=== PATIENT | female | born 1985 | race Caucasian/White ===

== ENCOUNTER → 2019-01-06 11:54 | Emergency (ER) | payer OTHER ==
[~2019-01-06 11:54] MED LIST: Acetaminophen TAB* 325 MG PO ONE; D5NS 0.9% 1000 ML BAG* 1,000 ML IV SCH; Dexamethasone IV* 4 MG/ML 1 ML (4 MG) IV SLOW PU ONE; Ketorolac INJ* 30 MG/ML 1 ML VIAL IV PUSH ONE; Penicillin VK TAB* 250 MG PO ONE
[2019-01-06 12:42] LABS: Influenza A Molecular NEGATIVE (Negative); Influenza B Molecular NEGATIVE (Negative)
--- NOTE | 2019-01-06 13:43 | ED ---
Influenza-Like Illness - HPI Summary HPI Summary: Patient is a 33 -year-old female presenting to the ED with fevers, sweats, chills, sore throat. Symptoms have been present 5 days. She endorses diaphoresis on arrival. She states she feels her throat is closing. Denies any known allergies. Denies any sick contacts. She continues to eat and drink , however she endorses decreased by mouth intake. - History of Current Complaint Chief Complaint: EDFluSymptoms Time Seen by Provider: 01/06/19 12:58 Hx Obtained From: Patient Onset/Duration: Sudden Onset Severity: Mild Associated Signs & Symptoms: Fever, T Max - 102.9, F/C, Myalgia, Sore Throat - Allergy/Home Medications Allergies/Adverse Reactions: Allergies Allergy/AdvReac Type Severity Reaction Status Date / Time No Known Allergies Allergy Verified 01/06/19 12:16 PMH/Surg Hx/FS Hx/Imm Hx Previously Healthy: Yes Psychiatric History: Reports: Hx Depression - Surgical History Surgery Procedure, Year, and Place: Tubal ligation April 2015 - Immunization History Hx Pertussis Vaccination: No Immunizations Up to Date: Yes - Infectious Disease History: No Infectious Disease History: Denies: History Other Infectious Disease, Traveled Outside the [place] in Last 30 Days - Family History Known Family History: Positive: None - Social History Occupation: Employed Part-time Lives: With Family Alcohol Use: None Hx Substance Use: Yes Substance Use Type: Reports: None, Prescribed Hx Tobacco Use: Yes Smoking Status (MU): Current Every Day Smoker Type: Cigarettes Amount Used/How Often: 1/2 ppd Have You Smoked in the Last Year: Yes Review of Systems Positive: Fever, Chills, Fatigue, Skin Diaphoresis Positive: Sore Throat. Negative: Ear Ache Negative: Palpitations, Chest Pain Negative: Shortness Of Breath, Cough Genitourinary: Negative Positive: no symptoms reported, see HPI Negative: Rash, Bruising Neurological: Negative All Other Systems Reviewed And Are Negative: Yes Physical Exam Triage Information Reviewed: Yes Vital Signs On Initial Exam: Initial Vitals Temp Pulse Resp BP Pulse Ox 102.9 F 147 17 127/81 99 01/06/19 12:12 01/06/19 12:12 01/06/19 12:12 01/06/19 12:12 01/06/19 12:12 Vital Signs Reviewed: Yes Appearance: Positive: Well-Appearing, Well-Nourished Skin: Positive: Warm, Skin Color Reflects Adequate Perfusion ENT: Positive: Pharyngeal erythema, Tonsillar swelling, Tonsillar exudate, Hoarse voice, Uvula midline. Negative: Hearing grossly normal, Pharynx normal, Nasal congestion, Dental tenderness, Sinus tenderness Neck: Positive: Supple, No Lymphadenopathy Respiratory/Lung Sounds: Positive: Clear to Auscultation, Breath Sounds Present Cardiovascular: Positive: RRR, Pulses are Symmetrical in both Upper and Lower Extremities Musculoskeletal: Positive: Strength/ROM Intact Neurological: Positive: Sensory/Motor Intact, Alert, Oriented to Person Place, Time, Speech Normal Psychiatric: Positive: Affect/Mood Appropriate AVPU Assessment: Alert Diagnostics - Vital Signs Vital Signs Temp Pulse Resp BP Pulse Ox 01/06/19 12:12 102.9 F 147 17 127/81 99 - Laboratory Lab Results: Lab Results 01/06/19 01/06/19 Range/Units 12:28 12:30 Influenza A (Rapid) Negative (Negative) Influenza B (Rapid) Negative (Negative) Group A Strep Rapid Positive A (Negative) Lab Statement: Any lab studies that have been ordered have been reviewed, and results considered in the medical decision making process. Flu Symptom Course/Dx - Course Course Of Treatment: During Mar[place], the patient is evaluated for fevers, sweats, chills, sore throat. Strep positive. Flu negative. On arrival, she is noted to be a 102.9 and 147 heart rate. She is given fluids, D5 normal saline, Decadron and given Pen VK. She is feeling improved. She will be discharged with prednisone, penicillin and Toradol. Recheck vital signs prior to discharge , continues to be tachycardia at 117. Temperature 101. Patient however states she is comfortable going home and is able to eat and drink okay. She understands return precautions and will return if she has any worsening or changing symptoms, or if she is developing a fever not well controlled with Toradol and Tylenol. - Diagnoses Provider Diagnoses: Strep throat Discharge - Sign-Out/Discharge Documenting (check all that apply): Patient Departure Patient Received Moderate/Deep Sedation with Procedure: No - Discharge Plan Condition: Stable Disposition: HOME Prescriptions: Ketorolac TAB * [Toradol TAB *] 10 mg PO Q6H #16 tab Penicillin VK 500 MG TAB(NF) [Penicillin VK 500 mg Tab(NF)] 500 mg PO BID #19 tab MDD 2 predniSONE TAB* [Deltasone TAB*] 50 mg PO DAILY #5 tab MDD 1 Patient Education Materials: Strep Throat (ED) Referrals: No Primary Care Phys,NOPCP [Primary Care Provider] - Additional Instructions: Prednisone 1 tab daily use in the morning, start this tomorrow Penicillin 1 tab twice daily 10 days, your next dose is this evening. Toradol up to four times daily x 4 days for discomfort. Dx: Strep Throat You will need antibiotic medicine to treat your strep throat. Please take the antibiotic as directed. You should feel better within 2 to 3 days after you start antibiotics. You may return to work or school 24 hours after you start antibiotics. If you have any questions about your medications, please do no hesitate to call or talk with your pharmacist. How can I manage my symptoms? Use lozenges, ice, soft foods, or popsicles to soothe your throat. Drink juice, milk shakes, or soup if your throat is too sore to eat solid food. Drinking liquids can also help prevent dehydration. Gargle with salt water. Mix teaspoon salt in a 1 cup of warm water and gargle. This may help reduce swelling in your throat. Do not smoke. Nicotine and other chemicals in cigarettes and cigars can cause lung damage and make your symptoms worse. Ask your healthcare provider for information if you currently smoke and need help to quit. E-cigarettes or smokeless tobacco still contain nicotine. Talk to your healthcare provider before you use these products. How do I prevent the spread of strep throat? Wash your hands often. Use soap and water. Wash your hands after you use the bathroom, change a child's diapers, or sneeze. Wash your hands before you prepare or eat food. Do not share food or drinks. Replace your toothbrush after you have taken antibiotics for 24 hours. Toradol: This medication is used to relieve moderate to moderately severe pain. Do not drink alcohol while taking Toradol. Do not take any other non-steroidal medications (ex. Naproxen, Ibuprofen, Motrin) while taking Toradol. - Billing Disposition and Condition Condition: STABLE Disposition: Home
[2019-01-06 15:26] VITALS: BP 131/78
== END | disposition home or self-care (01) ==
LOC: ED 11:54
DX: J02.0 Streptococcal pharyngitis (principal); R50.9 Fever, unspecified; J02.9 Acute pharyngitis, unspecified; F17.210 Nicotine dependence, cigarettes, uncomplicated
CPT/HCPCS: 87651; 99282; A9270-GY; J1100; J1885

== ENCOUNTER → 2019-09-08 01:16 | Emergency (ER) | payer OTHER ==
[~2019-09-08 01:16] MED LIST changes: -Acetaminophen TAB* 325 MG PO ONE; -D5NS 0.9% 1000 ML BAG* 1,000 ML IV SCH; -Dexamethasone IV* 4 MG/ML 1 ML (4 MG) IV SLOW PU ONE; +Ibuprofen TAB* 400 MG ONE; -Ketorolac INJ* 30 MG/ML 1 ML VIAL IV PUSH ONE; +Penicillin G Benzathine 1.2MU* 1,200,000 UNITS/2 ML SYR IM ONE; -Penicillin VK TAB* 250 MG PO ONE
[2019-09-08 01:20] VITALS: BP 127/91
[2019-09-08 04:46] LABS: Rapid Strep Molecular POSITIVE (Negative)
--- NOTE | 2019-09-08 04:51 | ED ---
HPI Febrile Illness - HPI Summary HPI Summary: This patient is a 33 year old F presenting to [facility] accompanied by significant other with a chief complaint of sore throat since night of 09/05/19. Patient reports fatigue, fever, body aches, and chills. Patient denies cough, nasal discharge, nausea, vomiting. Pt has previous issues with severe sore throat, around the same time last year. Pt smokes. Pt has no PMHx of respiratory issues. Pt denies any other health issues. - History of Current Complaint Chief Complaint: EDThroatPain Time Seen by Provider: 09/08/19 01:28 Hx Obtained From: Patient Hx Last Menstrual Period: NOW Onset/Duration: Started Days Ago Timing: Constant Initial Severity: Moderate Current Severity: Severe Pain Intensity: 8 Pain Scale Used: 0-10 Numeric Aggravating Factors: Nothing Alleviating Factors: Nothing Associated Signs and Symptoms: Chills, Other: - fatigue, fever, and body aches - Allergy/Home Medications Allergies/Adverse Reactions: Allergies Allergy/AdvReac Type Severity Reaction Status Date / Time No Known Allergies Allergy Verified 09/08/19 01:20 PMH/Surg Hx/FS Hx/Imm Hx Sensory History: Denies: Hx Legally Blind, Hx Deafness Opthamlomology History: Denies: Hx Legally Blind EENT History: Denies: Hx Deafness Psychiatric History: Reports: Hx Depression - Surgical History Surgery Procedure, Year, and Place: Tubal ligation April 2015 Infectious Disease History: No Infectious Disease History: Denies: History Other Infectious Disease, Traveled Outside the [place] in Last 30 Days - Family History Known Family History: Positive: None - Social History Alcohol Use: None Hx Substance Use: Yes Substance Use Type: Reports: None, Prescribed Hx Tobacco Use: Yes Smoking Status (MU): Current Every Day Smoker Type: Cigarettes Amount Used/How Often: 1/2 ppd Have You Smoked in the Last Year: Yes Review of Systems Positive: Fever, Chills, Fatigue, Other - Body Aches Positive: Sore Throat. Negative: Nasal Discharge Negative: Cough Negative: Vomiting, Nausea All Other Systems Reviewed And Are Negative: Yes Physical Exam - Summary Physical Exam Summary: Appearance: Well-appearing, Well-nourished, lying in bed comfortably Skin: Warm, dry, no obvious rash Eyes: sclera anicteric, no conjunctival pallor ENT: mucous membranes moist, pharynx appears normal Neck: Supple, nontender Respiratory: Clear to auscultation, no signs of respiratory distress Cardiovascular: Normal S1, S2. No murmurs. Normal distal pulses in tibial and radial bilaterally. Abdomen: Soft, nontender, normal active bowel sounds present Musculoskeletal: Normal, Strength/ROM Intact Neurological: A&Ox3, awake and alert, mentation is normal, speech is fluent and appropriate Psychiatric: affect is normal, does not appear anxious or depressed Triage Information Reviewed: Yes Vital Signs On Initial Exam: Initial Vitals Temp Pulse Resp BP Pulse Ox 97.9 F 116 16 127/91 100 09/08/19 01:17 09/08/19 01:17 09/08/19 01:17 09/08/19 01:17 09/08/19 01:17 Vital Signs Reviewed: Yes Procedures - Sedation Patient Received Moderate/Deep Sedation with Procedure: No Diagnostics - Vital Signs Vital Signs Temp Pulse Resp BP Pulse Ox 09/08/19 01:17 97.9 F 116 16 127/91 100 - Laboratory Lab Statement: Any lab studies that have been ordered have been reviewed, and results considered in the medical decision making process. Re-Evaluation - Re-Evaluation First Eval Re-Evaluation Time: 02:26 Comment: Discussed result and plan of care with pt Course/Dx - Course Course Of Treatment: This patient is a 33 year old F presenting to [facility] accompanied by significant other with a chief complaint of sore throat since night of 09/05/19. Patient reports fatigue, fever, body aches, and chills. Patient denies cough, nasal discharge, nausea, vomiting. Pt has previous issues with severe sore throat, around the same time last year. Pt smokes. Pt has no PMHx of respiratory issues. Pt denies any other health issues. Strep test is positive. Patient will be discharged. The patient is agreeable with this plan. - Diagnoses Provider Diagnoses: Acute streptococcal pharyngitis Discharge ED - Sign-Out/Discharge Documenting (check all that apply): Patient Departure - Discharge - Discharge Plan Condition: Stable Disposition: HOME Referrals: No Primary Care Phys,NOPCP [Primary Care Provider] - - Billing Disposition and Condition Condition: STABLE Disposition: Home - Attestation Statements Document Initiated by Scribe: Yes Documenting Scribe: [facility] Provider For Whom Scribe is Documenting (Include Credential): Gopal Gr MD Scribe Attestation: I, Darline Funk, scribed for Gopal Gr MD on 09/10/19 at 1909. Scribe Documentation Reviewed: Yes Provider Attestation: The documentation as recorded by the scribe, Darline Funk accurately reflects the service I personally performed and the decisions made by me, Gopal Gr MD Status of Scribe Document: Viewed
== END | disposition home or self-care (01) ==
LOC: ED 01:16
DX: J02.0 Streptococcal pharyngitis (principal); F17.210 Nicotine dependence, cigarettes, uncomplicated
CPT/HCPCS: 87070; 87077; 87651; 99282; A9270-GY; J0558